=== PATIENT | female | born 1995 | race Caucasian/White ===

== ENCOUNTER 2017-01-10 15:23 | Emergency (ER) | payer OTHER ==
[2017-01-10 17:20] LABS: BASOPHIL % 0.3 % (0-2); PLATELET COUNT 272 x10^3mcL (130-400); RED CELL DISTRIBUTION WIDTH 13.6 % (11.5-14.5)
[2017-01-10 17:33] LABS: CALCIUM 8.7 mg/dL (8.5-10.1); CARBON DIOXIDE 27.9 mmol/L (21-32); CHLORIDE SERUM 104 mmol/L (98-107); CREATININE SERUM 0.7 mg/dL (0.6-1.0); GFR1 > 60 mL/min; GLUCOSE SERUM 114 mg/dL (74-106); POTASSIUM SERUM 3.3 mmol/L (3.5-5.1); SODIUM SERUM 139 mmol/L (136-145)
[2017-01-10 17:38] LABS: ALBUMIN 3.7 g/dL (3.4-5.0); ALKALINE PHOSPHATASE 61 U/L (46-116); ALT/SGPT 69 U/L (14-59); AST/SGOT 30 U/L (15-37); BILIRUBIN TOTAL 0.9 mg/dL (0.20-1.00); TOTAL PROTEIN, SERUM 7.8 g/dL (6.4-8.2)
[2017-01-10 18:37] VITALS: BP 118/87
== END 2017-01-10 18:45 | disposition home or self-care (01) ==
LOC: ED 15:23
PROVIDERS: Emergency Medicine
DX: R07.89 Other chest pain (principal); E66.01 Morbid (severe) obesity due to excess calories
CPT/HCPCS: 36415; 83880; J1885

== ENCOUNTER 2020-03-08 11:18 | Emergency (ER) | payer MEDICAID ==
[~2020-03-08] VITALS: Ht 170.2 cm; Wt 132.4 kg
[2020-03-08 11:26] VITALS: BP 169/111; Ht 170.2 cm; Wt 132.4 kg
== END 2020-03-08 12:51 | disposition home or self-care (01) ==
LOC: ED 11:18
DX: R07.89 Other chest pain (principal); R51 Headache; R20.2 Paresthesia of skin